=== PATIENT | male | born 1990 | race Caucasian/White ===

== ENCOUNTER 2023-06-15 20:46 | Observation (INO) | payer BC, MEDICAID, SELFPAY ==
[2023-06-15 20:46] VITALS: BP 109/72; PULSE 78; RESP 18; TEMP 36.4; O2SAT 97; BMI 18.6
[2023-06-15 21:46] LABS: Amphetamine Urine VISTA POSITIVE (<1000 ng/mL); Barbiturate Urine VISTA NEGATIVE (< 200 ng/mL); Benzodiazepine Urine VISTA NEGATIVE (< 200 ng/mL); Cocaine Urine VISTA NEGATIVE (< 300 ng/mL); Ecstacy Urine VISTA POSITIVE (< 500 ng/mL); Methadone Urine VISTA NEGATIVE (< 300 ng/mL); PCP Urine VISTA NEGATIVE (< 25 ng/mL); THC Urine VISTA NEGATIVE (< 50 ng/mL); Vista UDS pH Range 6
[2023-06-15 22:13] LABS: Absolute Neutrophil Count 4.4 X10^3/uL (2.0-7.7); Basophil# 0.04 X10^3/uL; Basophil% 0.6 % (0-1); Eosinophil# 0.16 X10^3/uL; Eosinophils% 2.5 % (0-5); Hematocrit 37.8 % (40-54); Hemoglobin 12.6 g/dL (13.0-16.5); Lymphocyte % 18.6 % (19-41); Mean Corp Hgb Conc 33.3 g/dL (32-36); Mean Corpuscular Hgb 30.9 pg (27.0-32.0); Mean Corpuscular Volume 92.6 fL (80-94); Mean Platelet Vol. 8.9 fl (6.2-12.0); Monocyte% 9.3 % (0-10); NRBC Flagged by Analyzer 0 % (0-5); Neutrophil # 4.44 X10^3/uL (2.7-7.7); Neutrophil % 68.8 % (47-70); Platelet Count 225 K/mm3 (150-450); RBC Distribution Width CV 11.8 % (11.6-14.6); RBC Distribution Width SD 40.3 fl (35.1-43.9); Red Blood Count 4.08 M/mm3 (4.6-6.2); White Blood Count 6.5 K/mm3 (4.4-11.0)
--- NOTE | 2023-06-15 22:21 | EX.ED.SAOD ---
HPI History of Present Illness Chief Complaint: Substance Abuse Informant: patient Narrative Narrative: Patient is a 32-year-old male with no significant past medical history presenting for request of detox. Patient admits to daily use of IV amphetamines and fentanyl. He is requesting detox for this. He last used this afternoon. He is now feeling nauseous, anxious and an episode of vomiting in the parking lot. Denies any known history of HIV or hepatitis. Does use tobacco. Does not take any medicine on a daily basis. No other complaints or concerns at this time. PFSH PFSH Medical History no medical history Home Medications NK 06/15/23 [History Last Taken Unknown] Allergy/AdvReac Type Severity Reaction Status Date / Time No Known Allergies Allergy Verified 06/15/23 20:48 Surgical History no surgical history Social History Smoking Status: Current every day smoker tobacco type: cigarettes and e-cigarettes ROS ROS ED Constitutional Constitutional ED: Denies chills or fever(s) Cardiovascular Cardiovascular: Denies chest pain Respiratory/Chest Respiratory/Chest: Denies cough Gastrointestinal Gastrointestinal: Reports nausea and vomiting; Denies abdominal pain Musculoskeletal Musculoskeletal: Denies arthralgias or myalgias Integumentary Reports rash and other Details: skin picking, face Psychiatric Psychiatric: Reports anxiety; Denies depression, suicidal ideation or suicidal thoughts EXAM Physical Exam Const Vital Signs: 06/15/23 20:46 Temperature 97.6 F L Temperature Source Temporal Pulse Rate 78 Respiratory Rate 18 Blood Pressure 109/72 Blood Pressure Mean 84 Pulse Ox 97 Oxygen Delivery Method Room Air Positive well nourished and well developed General Appearance ED: well developed and NAD HEENT Reports moist mucous membranes Eyes PERRL and EOMs intact bilaterally Neck supple Chest Wall inspection of chest normal and palpation of chest normal Resp normal respiratory effort and clear to auscultation bilaterally Cardio regular rate, regular rhythm and no murmurs GI soft to palpation, non-tender and non-distended Extremity General Extremety ED: Negative for edema or tenderness General Extremity: Negative for edema Neuro oriented x3 Sensorium / Orientation: alert Psych mental status grossly normal and thought process normal Skin Skin Narrative: Scattered erythematous scabs on the face consistent with skin picking MDM MDM MDM Narrative Medical decision making narrative: Patient is evaluated for amphetamine and fentanyl abuse and request of detox. He appears nontoxic in no acute distress. Is having some mild withdrawal symptoms including nausea, vomiting and anxiety. Is given dose of Zofran and Benadryl in the emergency room. Will obtain medical screening labs and contact hospitalist for admission for fentanyl detox. Patient medically cleared. Case is discussed with my physician, Dr. Peña and will be admitted. Lab Data Attestation: I reviewed the patient's lab results. Labs: Laboratory Results - last 24 hr 06/15/23 06/15/23 06/15/23 21:20 22:05 22:10 WBC 6.5 RBC 4.08 L Hgb 12.6 L Hct 37.8 L MCV 92.6 MCH 30.9 MCHC 33.3 RDW Std Deviation 40.3 RDW Coeff of Elsy 11.8 Plt Count 225 MPV 8.9 Immature Gran % (Auto) 0.200 Neut % (Auto) 68.8 Lymph % (Auto) 18.6 L [place] % (Auto) 9.3 Eos % (Auto) 2.5 Baso % (Auto) 0.6 Absolute Neuts (auto) 4.4 Absolute Lymphs (auto) 1.20 Nucleated RBC % 0 Sodium 135 L Potassium 4.1 Chloride 101 Carbon Dioxide 33.0 H Anion Gap 1 L BUN 17 Creatinine 0.92 Estim Creat Clear Calc 89.64 Est GFR (MDRD) Af Amer 123 Est GFR (MDRD) Non-Af 102 BUN/Creatinine Ratio 18.4 Glucose 102 Calcium 9.4 Total Bilirubin 0.50 Direct Bilirubin 0.11 AST 22 ALT 30 Alkaline Phosphatase 59 Total Protein 6.9 Albumin 3.6 Globulin 3.3 Urine Opiates Screen NEGATIVE Urine Methadone Screen NEGATIVE Ur Barbiturates Screen NEGATIVE Ur Phencyclidine Scrn NEGATIVE Ur Amphetamines Screen POSITIVE H MDMA (Ecstasy) Screen POSITIVE H U Benzodiazepines Scrn NEGATIVE Urine Cocaine Screen NEGATIVE U Cannabinoids Screen NEGATIVE Ur Drug Screen Comment Ethyl Alcohol < 3.0 Discharge Plan Triage Chief Complaint: Substance Abuse ED Provider: Ericka Atkinson Dx/Rx/DC Orders Prescriptions: No Action NK Primary Care Provider: Care Physician,No Primary Referrals: NOT,DEFINED [Non-Staff] -
[2023-06-15 22:36] LABS: Anion Gap 1 (5-15); BUN 17 mg/dL (7-18); BUN/Creat Ratio 18.4 RATIO (10-20); Calcium,Total 9.4 mg/dL (8.5-10.1); Chloride 101 mmol/L (98-107); Creatinine, Serum 0.92 mg/dL (0.70-1.30); EST Glomerular Filtration Rate 102 mL/min (>60); Est Glom Filt Rate - Afr Amer 123 mL/min (>60); Estimated Creatinine Clearance 89.64 ml/min; Glucose 102 mg/dL (74-106); Potassium 4.1 mmol/L (3.5-5.1); Sodium Level 135 mmol/L (136-145)
[2023-06-15] MEDS: DiphenhydrAMINE 25 MG Capsule PO (22:41)
[2023-06-15] MEDS: Ondansetron ODT 4 MG Tablet PO (22:41)
[2023-06-15 22:48] LABS: Alcohol, Blood (Medical)-Serum < 3.0 mg/dL
[2023-06-15 22:57] LABS: AST(SGOT) 22 U/L (15-37); Alanine Aminotransfer ALT/SGPT 30 U/L (16-61); Albumin, Serum 3.6 g/dL (3.2-5.0); Alkaline Phosphatase 59 U/L (45-117); Bilirubin, Direct 0.11 mg/dL (0.00-0.30); Globulin 3.3 g/dL (2.2-4.2); Protein, Total 6.9 g/dL (6.4-8.2)
--- NOTE | 2023-06-15 23:45 | PCM.HP.STD ---
[facility] - General General Date of Admission: 06/16/23 Date of Service: 06/15/23 Chief Complaint: Needs Help with Detox from Fentanyl and Amphetamines. HPI Narrative KANDI MAYERS, is a 32 M with a past medical history of tobacco abuse, chronic daily amphetamine abuse and chronic daily fentanyl abuse who presents to [facility] ER complaining of needing help to detox from fentanyl and amphetamines. Mr. Mayers reports he knows he needs help to stop using drugs because he thinks he will likely if he continues on his current path of addiction. He states he does not want to because he wants to be able to care for his children (who are aged 4 years old and 3 months old). He last used illicit drugs earlier this afternoon and he is currently not any any prescribed pharmaceutical medication. He admits to feeling anxious and nauseous with one episode of bilious emesis in the hospital parking lot. He denies other complaints at this time or other recent illness. In the ER his UDS was positive for MDMA and amphetamines (with fentanyl not able to be detected on this assay) with clinical evidence of acute amphetamine and fentanyl withdrawal and he was then admitted to the general medical floor for ongoing care for a stay that is expected to be greater than 48 hours. [facility] Medical History no medical history Home Medications NK 06/15/23 [History Last Taken Unknown] Allergy/AdvReac Type Severity Reaction Status Date / Time No Known Allergies Allergy Verified 06/15/23 20:48 Surgical History no surgical history Social History Smoking Status: Current every day smoker tobacco type: cigarettes and e-cigarettes ROS ROS Narrative Review of systems: General: Patient denies fevers or chills. HENT: Denies headache, denies stuffy nose, denies sore throat EYES: Denies changes in vision Resp: Denies cough, denies shortness of breath Cardiac: Denies chest pain or palpitations. GI: Patient admits to nausea and vomiting but denies abdominal pain. : Denies changes in urination Extremity: Denies swelling Musculoskeletal: Feels somewhat generally weak and unwell Neuro: Patient admits to a prickling sensation in his skin particularly in his face. Heme: Denies any bleeding or bruising Skin: Patient has sores over his face consistent with chronic methamphetamine abuse. Psychiatric: Patient admits to anxiety but denies depression, suicidal thoughts or homicidal thoughts. Endocrine: No polyuria, Polydipsia or polyphagia. The rest of the 14 point ROS was negative except for positives in HPI. Vital Signs Vital Signs Vital Signs: 06/15/23 20:46 Temperature 97.6 F L Temperature Source Temporal Pulse Rate 78 Respiratory Rate 18 Blood Pressure 109/72 Blood Pressure Mean 84 Pulse Ox 97 Oxygen Delivery Method Room Air Weight Weight: 119 lb Body Mass Index (BMI) 18.6 Physical Exam Const alert, oriented x3, no apparent distress and average body habitus Constitutional Narrative: Patient has sores all over his face and poor dentition. General Appearance: cooperative HEENT normocephalic, head/scalp atraumatic, hearing grossly normal bilaterally and moist oral mucous membranes HEENT Narrative: Poor dentition noted. Eyes PERRL and EOMs intact bilaterally Neck no lymphadenopathy and supple Resp normal respiratory effort, no retractions, no use of accessory muscles and clear to auscultation bilaterally Cardio regular rate and regular rhythm GI normal to inspection, nondistended, normoactive bowel sounds, soft to palpation, non-tender and non-distended Extremity normal to inspection and full ROM Skin Skin Narrative: Patient has no evidence of abscess or rash. Neuro oriented x3, CN's II-XII intact bilaterally, moves all extremities and no focal motor deficits Sensorium / Orientation: awake, alert, oriented to person, oriented to place and oriented to time Speech: speech normal Motor Exam: strength 5/5 throughout Psych Mood & Affect: anxious Results Medical Records Data Attestation: I reviewed the patient's medical records Lab / Micro Data Attestation: I reviewed the patient's lab results. 06/15/23 22:05 06/15/23 22:05 Labs: Laboratory Results - last 24 hr 06/15/23 21:20: Urine Opiates Screen NEGATIVE, Urine Methadone Screen NEGATIVE, Ur Barbiturates Screen NEGATIVE, Ur Phencyclidine Scrn NEGATIVE, Ur Amphetamines Screen POSITIVE H, MDMA (Ecstasy) Screen POSITIVE H, U Benzodiazepines Scrn NEGATIVE, Urine Cocaine Screen NEGATIVE, U Cannabinoids Screen NEGATIVE, Ur Drug Screen Comment 06/15/23 22:05: WBC 6.5, RBC 4.08 L, Hgb 12.6 L, Hct 37.8 L, MCV 92.6, MCH 30.9, MCHC 33.3, RDW Std Deviation 40.3, RDW Coeff of Elsy 11.8, Plt Count 225, MPV 8.9, Immature Gran % (Auto) 0.200, Neut % (Auto) 68.8, Lymph % (Auto) 18.6 L, [place] % (Auto) 9.3, Eos % (Auto) 2.5, Baso % (Auto) 0.6, Absolute Neuts (auto) 4.4, Absolute Lymphs (auto) 1.20, Nucleated RBC % 0, Sodium 135 L, Potassium 4.1, Chloride 101, Carbon Dioxide 33.0 H, Anion Gap 1 L, BUN 17, Creatinine 0.92, Estim Creat Clear Calc 89.64, Est GFR (MDRD) Af Amer 123, Est GFR (MDRD) Non-Af 102, BUN/Creatinine Ratio 18.4, Glucose 102, Calcium 9.4, Ethyl Alcohol < 3.0 06/15/23 22:10: Total Bilirubin 0.50, Direct Bilirubin 0.11, AST 22, ALT 30, Alkaline Phosphatase 59, Total Protein 6.9, Albumin 3.6, Globulin 3.3 Assessment & Plan Assessment/Plan (1) Amphetamine withdrawal: (2) Opiate withdrawal: (3) Tobacco abuse: PLAN: Plan 1. Acute methamphetamine and fentanyl withdrawal in the setting of chronic daily methamphetamine and fentanyl abuse - Admit To general medical floor treatment with addiction protocol. Methamphetamine and fentanyl abuse will be strongly discouraged. Finally, We will consult the addiction counselor to help this patient formulate and execute a plan for sobriety with help appreciated in advance. 2. Tobacco abuse - Tobacco Abuse will be strongly discouraged with nicotine patch offered to control cravings. 3. DVT prophylaxis - Lovenox 40 mg subcu daily plus patient up ad basia. Total time: Approximately 45 minutes. Charges/Coding Visit Charges Inpatient E&M: 04696 Init Hosp L1
[2023-06-16 00:05] VITALS: BP 97/48; PULSE 78; RESP 16; TEMP 36.8; O2SAT 97
[2023-06-16 00:41] VITALS: BMI 18.2
[2023-06-16] MEDS: Gabapentin 300 MG Capsule PO ×2 (01:17→10:33)
[2023-06-16] MEDS: traZODone 100 MG Tablet PO (01:17)
[2023-06-16 05:41] VITALS: BP 105/69; PULSE 63; RESP 16; TEMP 36.9; O2SAT 99
[2023-06-16 08:53] LABS: Hematocrit 39.6 % (40-54); Hemoglobin 13.2 g/dL (13.0-16.5); Mean Corp Hgb Conc 33.3 g/dL (32-36); Mean Corpuscular Hgb 31.2 pg (27.0-32.0); Mean Corpuscular Volume 93.6 fL (80-94); Mean Platelet Vol. 9.1 fl (6.2-12.0); Platelet Count 223 K/mm3 (150-450); RBC Distribution Width CV 11.8 % (11.6-14.6); RBC Distribution Width SD 41.1 fl (35.1-43.9); Red Blood Count 4.23 M/mm3 (4.6-6.2); White Blood Count 4.8 K/mm3 (4.4-11.0)
--- NOTE | 2023-06-16 09:05 | ADDICTION ---
clinician met with client to discuss his hx of substance use. client reported a need to remain sober, however, he is externally motivated and would only like to engage in a lower LOC for tx; MAT and individual counseling. clinician discussed tx options; as client reported never engaging in MAT. client would like to attend MAT and individual counseling services at [facility]. clinician assisted client in completing zoey. clinician will follow up medical department at [facility] and continue to collaborate care with client.
[2023-06-16 09:29] LABS: Anion Gap 4 (5-15); BUN 14 mg/dL (7-18); BUN/Creat Ratio 14.2 RATIO (10-20); Calcium,Total 9.1 mg/dL (8.5-10.1); Chloride 107 mmol/L (98-107); Creatinine, Serum 0.98 mg/dL (0.70-1.30); EST Glomerular Filtration Rate 95 mL/min (>60); Est Glom Filt Rate - Afr Amer 115 mL/min (>60); Estimated Creatinine Clearance 82.31 ml/min; Glucose 115 mg/dL (74-106); Potassium 4.2 mmol/L (3.5-5.1); Sodium Level 139 mmol/L (136-145)
[2023-06-16 10:22] LABS: HIV - WCH Non-Reactive (Nonreactive)
[2023-06-16] MEDS: cloNIDine HCl 0.1 MG Tablet 0.100000000000000006 MG PO (10:33)
[2023-06-16 11:41] VITALS: BP 105/65; PULSE 74; RESP 16; TEMP 36.8; O2SAT 98
[2023-06-16] MEDS: Buprenorphine HCl 2 MG TAB.SUBL SL ×2 (12:00→17:47)
--- NOTE | 2023-06-16 15:20 | PCM.PN.HOSP ---
Reason for Visit Reason for Visit: Diagnoses Opioid use, unspecified with withdrawal (06/16/23) Other stimulant use, unspecified with withdrawal (06/16/23) Tobacco use (06/16/23) Subjective Subjective No acute events overnight. Patient seen at bedside this morning. Was sleeping on my arrival to the room. States he feels fatigued but otherwise has minimal withdrawal symptoms at this point. He does not have much of an appetite this morning, does report a mild degree of nausea but does not have any episodes of vomiting. Otherwise denies any acute pain or discomfort. No other acute concerns this time. Objective Data Objective Data Vital Signs: Vital Signs Temp Pulse Resp BP Pulse Ox O2 Del Method 98.3 F 74 16 105/65 98 Room Air 06/16/23 11:41 06/16/23 11:41 06/16/23 11:41 06/16/23 11:41 06/16/23 11:41 06/16/23 11:41 Oxygen Delivery Method Room Air Weight: 52.8 kg Body Mass Index (BMI) 18.2 Intake & Output: Intake and Output for Last 24 Hours 06/14/23 06/15/23 06/16/23 23:59 23:59 23:59 Intake Total 950 / 950 Balance 950 / 950 Medical Nutrition Assessment Dietitian: Malnutrition Criteria Met Start: 06/16/23 14:32 Freq: Status: Active Protocol: Document 06/16/23 14:32 SLA (Rec: 06/16/23 14:32 SLA Desktop) Nutrition Malnutrition Evidence of Malnutrition Exists Yes Malnutrition (severe): Social/Behavioral/ Environmental Evidenced By Suboptimal Energy Intake ( Severe),Weight Loss (Severe) Clinical Problem Chronic Disease or Condition Related Malnutrition Etiology related to drug abuse Signs/Symptoms as evidenced by 10.5% unintended wt loss and po intake meeting <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 Lab / Micro Data 06/16/23 08:30 06/16/23 08:30 Labs: Laboratory Results - last 24 hr 06/15/23 21:20: Urine Opiates Screen NEGATIVE, Urine Methadone Screen NEGATIVE, Ur Barbiturates Screen NEGATIVE, Ur Phencyclidine Scrn NEGATIVE, Ur Amphetamines Screen POSITIVE H, MDMA (Ecstasy) Screen POSITIVE H, U Benzodiazepines Scrn NEGATIVE, Urine Cocaine Screen NEGATIVE, U Cannabinoids Screen NEGATIVE, Ur Drug Screen Comment 06/15/23 22:05: WBC 6.5, RBC 4.08 L, Hgb 12.6 L, Hct 37.8 L, MCV 92.6, MCH 30.9, MCHC 33.3, RDW Std Deviation 40.3, RDW Coeff of Elsy 11.8, Plt Count 225, MPV 8.9, Immature Gran % (Auto) 0.200, Neut % (Auto) 68.8, Lymph % (Auto) 18.6 L, [place] % (Auto) 9.3, Eos % (Auto) 2.5, Baso % (Auto) 0.6, Absolute Neuts (auto) 4.4, Absolute Lymphs (auto) 1.20, Nucleated RBC % 0, Sodium 135 L, Potassium 4.1, Chloride 101, Carbon Dioxide 33.0 H, Anion Gap 1 L, BUN 17, Creatinine 0.92, Estim Creat Clear Calc 89.64, Est GFR (MDRD) Af Amer 123, Est GFR (MDRD) Non-Af 102, BUN/Creatinine Ratio 18.4, Glucose 102, Calcium 9.4, Ethyl Alcohol < 3.0 06/15/23 22:10: Total Bilirubin 0.50, Direct Bilirubin 0.11, AST 22, ALT 30, Alkaline Phosphatase 59, Total Protein 6.9, Albumin 3.6, Globulin 3.3 06/16/23 08:30: WBC 4.8, RBC 4.23 L, Hgb 13.2, Hct 39.6 L, MCV 93.6, MCH 31.2, MCHC 33.3, RDW Std Deviation 41.1, RDW Coeff of Elsy 11.8, Plt Count 223, MPV 9.1, Sodium 139, Potassium 4.2, Chloride 107, Carbon Dioxide 28.0, Anion Gap 4 L, BUN 14, Creatinine 0.98, Estim Creat Clear Calc 82.31, Est GFR (MDRD) Af Amer 115, Est GFR (MDRD) Non-Af 95, BUN/Creatinine Ratio 14.2, Glucose 115 H, Calcium 9.1, HIV 1&2 Antibody Non-Reactive Physical Exam Const alert, oriented x3 and no apparent distress Constitutional Narrative: Young male, thin appearing, fatigued, otherwise laying comfortably bed, conversing normally, no acute distress. General Appearance: cooperative and comfortable HEENT normocephalic, head/scalp atraumatic, hearing grossly normal bilaterally, nasal mucous membranes and turbinates normal and moist oral mucous membranes Eyes PERRL, EOMs intact bilaterally and conjunctivae normal Neck full ROM, no lymphadenopathy and supple Lymph Lymphatic: no lymphadenopathy noted Chest inspection of chest normal Resp normal respiratory effort, normal air movement, no use of accessory muscles and clear to auscultation bilaterally Cardio regular rate, regular rhythm, no murmurs and peripheral pulses 2+ throughout GI normal to inspection, nondistended, normoactive bowel sounds, soft to palpation, non-tender and non-distended Back/Spine normal ROM Extremity normal to inspection, full ROM and no pedal edema Skin no rashes or lesions noted Neuro no focal motor deficits and no sensory deficits noted Speech: speech normal Psych mental status grossly normal Assessment & Plan Assessment/Plan (1) Opiate withdrawal: (2) Amphetamine withdrawal: (3) Tobacco abuse: PLAN: Plan Patient is a 32-year-old male who presented to [facility] ED on 06/15/2023 for detoxification from fentanyl and amphetamines. 1. Polysubstance abuse Reported chronic daily IV fentanyl and amphetamine abuse on admit. UDS positive for MDMA and amphetamines (fentanyl not able to be detected on this assay). ? Case management following. Continue Subutex taper with as needed medications per opiate withdrawal order set. Planning for discharge home with outpatient follow-up with 180. 2. Tobacco abuse ? Continue nicotine patch while inpatient. Encouraged cessation. DVT prophylaxis: Lovenox CODE STATUS: Full code, unverified Expected disposition: Home, 1 to 2 days Total clinical time spent by myself addressing the patient's medical issues, reviewing all the data, and collaborating with patient's care team: 25 minutes. Charges/Coding Visit Charges Inpatient E&M: 41751 [facility] Hosp L1
[2023-06-16 17:40] VITALS: BP 108/66; PULSE 78; RESP 16; TEMP 37; O2SAT 100
[2023-06-16 21:00] VITALS: BP 100/68; PULSE 88; RESP 18; TEMP 36.8; O2SAT 98
[2023-06-17] MEDS: Buprenorphine HCl 2 MG TAB.SUBL SL ×3 (02:33→18:36)
[2023-06-17] MEDS: hydrOXYzine PAM 25 MG Capsule 50 MG PO (02:34)
[2023-06-17] MEDS: Methocarbamol 750 MG Tablet PO (02:35)
[2023-06-17 02:47] VITALS: BP 99/62; PULSE 76; RESP 18; TEMP 36.6; O2SAT 100
[2023-06-17 05:08] LABS: HEPATITIS B SURFACE AG Negative (Negative); Hep C Antibodies Non Reactive (Non Reactive); Hepatitis A IgM Antibody Negative (Negative); Hepatitis B Core AB IgM Negative (Negative)
[2023-06-17 08:52] VITALS: BP 100/64; PULSE 68; RESP 16; TEMP 36.6; O2SAT 100
[2023-06-17] MEDS: Gabapentin 300 MG Capsule PO (09:03)
--- NOTE | 2023-06-17 11:01 | ADDICTION ---
clinician met with client to further discuss discharge/tx planning upon release from detox. client would like to attend [facility] for outpatient/individual counseling services. clinician will coordinate care for appointment. client was cooperative and reported feeling ok .
--- NOTE | 2023-06-17 15:20 | PCM.PN.HOSP ---
Reason for Visit Reason for Visit: Diagnoses Opioid use, unspecified with withdrawal (06/16/23) Other stimulant use, unspecified with withdrawal (06/16/23) Tobacco use (06/16/23) Objective Data Objective Data Vital Signs: Vital Signs Temp Pulse Resp BP Pulse Ox O2 Del Method 97.8 F 68 16 100/64 100 Room Air 06/17/23 08:52 06/17/23 08:52 06/17/23 08:52 06/17/23 08:52 06/17/23 08:52 06/17/23 08:54 Oxygen Delivery Method Room Air Weight: 52.8 kg Body Mass Index (BMI) 18.2 Intake & Output: Intake and Output for Last 24 Hours 06/15/23 06/16/23 06/17/23 23:59 23:59 23:59 Intake Total 1500 / 1500 Balance 1500 / 1500 Medical Nutrition Assessment Dietitian: Malnutrition Criteria Met Start: 06/16/23 14:32 Freq: Status: Active Protocol: Document 06/16/23 14:32 SLA (Rec: 06/16/23 14:32 SLA Desktop) Nutrition Malnutrition Evidence of Malnutrition Exists Yes Malnutrition (severe): Social/Behavioral/ Environmental Evidenced By Suboptimal Energy Intake ( Severe),Weight Loss (Severe) Clinical Problem Chronic Disease or Condition Related Malnutrition Etiology related to drug abuse Signs/Symptoms as evidenced by 10.5% unintended wt loss and po intake meeting <50% 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 Lab / Micro Data 06/16/23 08:30 06/16/23 08:30 Labs: Laboratory Results - last 24 hr 06/16/23 08:30: Hepatitis A IgM Ab Negative, Hep Bs Antigen Negative, Hep B Core IgM Ab Negative, Hepatitis C Ab (EIA) Non Reactive, Hep C Ab Comment Comment
--- NOTE | 2023-06-17 15:21 | DCINST_ITS ---
Discharge Instructions Diet Discharge Diet: No restrictions Activity Discharge Activity: No Restrictions Weight Bearing Status: Full weight bearing Follow Up Care Test Results: Test results from this visit will be discussed in further detail at your follow- up appointment, if applicable. Discharge Plan Admission Admit Date/Time: 06/16/23 00:02 Primary Reason for Your Visit: opiate and amphetamine abuse Attending Provider: Matt Ferrer Primary Care Provider: Care Physician,No Primary Consulting Providers: Albino Uribe Instructions Additional Instructions / Restrictions: Follow-up with outpatient substance use therapy as discussed with addiction medicine. Discharge Orders/Prescriptions Prescriptions: No Action NK Referrals / Follow Up: Care Physician,No Primary [Primary Care Provider] - NOT,DEFINED [Non-Staff] - Disposition Disposition (needs filled in before D/C Order can be placed): Home, Self Care
--- NOTE | 2023-06-17 15:24 | DS.PCM_ITS ---
Providers Date of Admission: 06/16/23 Date of Discharge: 06/17/23 Primary Care Physician: No Primary Care Phys Reason For Visit: ACUTE METHSMPHETAMINE AND FENTANYL WITHDRAWAL Diagnosis Discharge Diagnosis (1) Opiate withdrawal: Status: Acute Code(s): F11.93 - Opioid use, unspecified with withdrawal (2) Amphetamine withdrawal: Status: Acute Code(s): F15.93 - Other stimulant use, unspecified with withdrawal (3) Tobacco abuse: Status: Acute Code(s): Z72.0 - Tobacco use Medications at Discharge Home Medications NK 06/15/23 Hospital Course Operations None Procedures None Summary of Care Provided Minutes Spent on Discharge: 25 Hospital Course: Patient is a 32-year-old male who presented to [facility] ED on 06/15/2023 for detoxification from fentanyl and amphetamines. Hospital course as noted below. Discharged home in stable condition on 06/17. 1. Polysubstance abuse Reported chronic daily IV fentanyl and amphetamine abuse on admit. UDS positive for MDMA and amphetamines (fentanyl not able to be detected on this assay). ? Completed Subutex taper while inpatient with good symptom control. Case management and addiction medicine followed, planning for discharge home with outpatient follow-up with 180. 2. Tobacco abuse ? Provided nicotine patch while inpatient. Encouraged cessation. Total clinical time spent by myself addressing the patient's discharge needs: 25 minutes. Physical Exam Const alert, oriented x3 and no apparent distress Constitutional Narrative: Young male, thin appearing, fatigued, otherwise laying comfortably bed, conversing normally, no acute distress. General Appearance: cooperative and comfortable HEENT normocephalic, head/scalp atraumatic, hearing grossly normal bilaterally, nasal mucous membranes and turbinates normal and moist oral mucous membranes Eyes PERRL, EOMs intact bilaterally and conjunctivae normal Neck full ROM, no lymphadenopathy and supple Lymph Lymphatic: no lymphadenopathy noted Chest inspection of chest normal Resp normal respiratory effort, normal air movement, no use of accessory muscles and clear to auscultation bilaterally Cardio regular rate, regular rhythm, no murmurs and peripheral pulses 2+ throughout GI normal to inspection, nondistended, normoactive bowel sounds, soft to palpation, non-tender and non-distended Back/Spine normal ROM Extremity normal to inspection, full ROM and no pedal edema Skin no rashes or lesions noted Neuro no focal motor deficits and no sensory deficits noted Speech: speech normal Psych mental status grossly normal Medical Records Data Medical Nutrition Assessment Dietitian: Malnutrition Criteria Met Start: 06/16/23 14:32 Freq: Status: Active Protocol: Document 06/16/23 14:32 SLA (Rec: 06/16/23 14:32 SLA Desktop) Nutrition Malnutrition Evidence of Malnutrition Exists Yes Malnutrition (severe): Social/Behavioral/ Environmental Evidenced By Suboptimal Energy Intake ( Severe),Weight Loss (Severe) Clinical Problem Chronic Disease or Condition Related Malnutrition Etiology related to drug abuse Signs/Symptoms as evidenced by 10.5% unintended wt loss and po intake meeting <50% of est nutritional needs 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 Weight / BMI Weight Weight: 52.8 kg Body Mass Index (BMI) 18.2 ABG / Lab / Microbiology Data 06/16/23 08:30 06/16/23 08:30 Laboratory: Laboratory Results - last 24 hr 06/16/23 08:30: Hepatitis A IgM Ab Negative, Hep Bs Antigen Negative, Hep B Core IgM Ab Negative, Hepatitis C Ab (EIA) Non Reactive, Hep C Ab Comment Comment D/C Instructions Discharge Diet: No restrictions Weight Bearing Status: Full weight bearing Meaningful Use Info Meaningful Use Diagnoses (Choose all that apply): None applicable Discharge Plan Admission Admit Date/Time: 06/16/23 00:02 Primary Reason for Your Visit: opiate and amphetamine abuse Attending Provider: Matt Ferrer Primary Care Provider: Care Physician,No Primary Consulting Providers: Albino Uribe Instructions Additional Instructions / Restrictions: Follow-up with outpatient substance use therapy as discussed with addiction medicine. Discharge Orders/Prescriptions Prescriptions: No Action NK Referrals / Follow Up: Care Physician,No Primary [Primary Care Provider] - NOT,DEFINED [Non-Staff] - Disposition Disposition (needs filled in before D/C Order can be placed): Home, Self Care Charges/Coding Visit Charges Inpatient E&M: 58608 Disch Hosp
[2023-06-17 20:46] VITALS: BP 102/56; PULSE 70; RESP 16; TEMP 36.6; O2SAT 98
== END 2023-06-17 20:48 | disposition home or self-care (01) | DRG 773 ==
LOC: ED 22:30 → MS3 06-16 07:08
PROVIDERS: Admitting Provider Internal Medicine; Emergency Provider Emergency Medicine; Visit Provider Hospitalist
DX: F11.13 Opioid abuse with withdrawal (principal); E43 Unspecified severe protein-calorie malnutrition; F15.13 Other stimulant abuse with withdrawal; F17.210 Nicotine dependence, cigarettes, uncomplicated; Z68.1 Body mass index [BMI] 19.9 or less, adult; F17.290 Nicotine dependence, other tobacco product, uncomplicated
CPT/HCPCS: 36415; 80048; 80074; 80076; 80307; 80320; 85025; 85027; 86703; 99221; 99283; G0378; G0480